=== PATIENT | male | born 1970 | race Two or more races ===

== ENCOUNTER 2016-07-15 16:51 | Emergency (ER) | payer MEDICAID ==
[~2016-07-15] VITALS: Ht 172.7 cm; Wt 68.0 kg
[~2016-07-15 16:51] MED LIST: BACL10TA PO; GABA300C8 PO; HYDR50CA2 PO; IBU800T PO; LITH300T11 PO; NOR5T PO; PANT40T PO; PHE100C PO; PRA1C PO; QUET200T30 PO; SERT-160 PO; TRAZ100T2 PO
[2016-07-16] MEDS ORDERED: SODIUM CHLORIDE 0.9% 1,000 ML IV ONE (06:55)
[2016-07-16] MEDS ORDERED: PROMETHAZINE HCL 25 MG/ML 1ML IV ONE (07:00)
[2016-07-16] MEDS ORDERED: KETOROLAC TROMETH 30 MG/ML 1ML VIAL IV ONE (07:00)
[2016-07-16 08:12] LABS: Basophils # (auto) 0 uL; Basophils % (auto) 0.9 % (0.0-2.0); Eosinophils # (auto) 0.1 uL; Eosinophils % (auto) 1.4 % (0.0-7.0); Hematocrit 38.2 % (41.0-53.0); Hemoglobin 12.3 g/dL (13.5-17.5); Lymphocytes # (auto) 1.8 uL; Lymphocytes % (auto) 39.8 % (10.0-50.0); Mean Corpuscular Hemoglobin 28.3 pg (28.0-32.0); Mean Corpuscular Hgb Conc. 32.1 g/dL (32.0-36.0); Mean Platelet Volume 7.5 fL (7.4-10.4); Monocytes # (auto) 0.5 uL; Monocytes % (auto) 11.5 % (0.0-12.0); Neutrophils # (auto) 2.2 uL; Neutrophils % (auto) 46.4 % (37.0-80.0); Platelet Count (auto) 234 10^3/uL (140-450); Red Cell Distribution Width 15.5 % (11.6-16.0); White Blood Cell 4.6 10^3/uL (4.4-10.8)
[2016-07-16 09:48] LABS: Anion Gap 7 (5-15); BUN/Creatinine Ratio 16.8; Blood Urea Nitrogen 18 mg/dL (7-18); Calcium 8.4 mg/dL (8.5-10.1); Carbon Dioxide 26 mmol/L (21-32); Chloride 103 mmol/L (98-107); GFR African American 95 mL/min; GFR Non-African American 79 mL/min; Glucose 88 mg/dL (74-106); Magnesium 2.2 mg/dL (1.6-2.6); Potassium 3.6 mmol/L (3.5-5.1); Sodium 136 mmol/L (136-145)
[2016-07-16 11:30] VITALS: BP 111/76
== END 2016-07-16 12:30 | disposition home or self-care (01) ==
LOC: EDBD 16:51 → ER 16:56
DX: M54.5 Low back pain (principal); G89.29 Other chronic pain; F10.129 Alcohol abuse with intoxication, unspecified; K21.9 Gastro-esophageal reflux disease without esophagitis; I10 Essential (primary) hypertension; B20 Human immunodeficiency virus [HIV] disease; Z86.19 Personal history of other infectious and parasitic diseases; Z87.898 Personal history of other specified conditions; F10.10 Alcohol abuse, uncomplicated
CPT/HCPCS: 36415; 80048; 80185; 80320; 83735; 84132; 85025; 96361; 96374; 96375; 99284; J1885; J2550; J7030

== ENCOUNTER 2017-06-18 13:21 | Emergency (ER) | payer MEDICAID ==
[~2017-06-18] VITALS: Ht 165.1 cm; Wt 74.8 kg
[~2017-06-18 13:21] MED LIST changes: +GABA300C10 PO; -GABA300C8 PO; +HYDR-4683 PO; -IBU800T PO; +IBUP800T24 PO; -LITH300T11 PO; +LITH300T3 PO; -NOR5T PO
[2017-06-19 08:45] VITALS: BP 117/78
[2017-06-19] MEDS ORDERED: HYDROcodone-ACET 10/325MG TAB PO ONE (08:45)
== END 2017-06-19 09:13 | disposition home or self-care (01) ==
LOC: ER 13:21
DX: B02.9 Zoster without complications (principal); F17.210 Nicotine dependence, cigarettes, uncomplicated; Z79.899 Other long term (current) drug therapy

== ENCOUNTER 2018-01-13 19:25 | Inpatient (IN) | payer MEDICAID ==
[~2018-01-13] VITALS: Ht 162.6 cm; Wt 78.4 kg
[2018-01-14] MEDS ORDERED: cloNIDine HCL 0.1 MG TAB PO ONE (04:15)
[2018-01-14] MEDS ORDERED: SULFAMETH-TRIMETH 80/16MG-ML 15 ML in D5W 5% 500 ML IV ONE (04:15)
[2018-01-14] MEDS ORDERED: PIPERACILLIN-TAZOB 3.375GM 100 ML IV ONE (04:15)
[2018-01-14 04:57] LABS: Basophils # (auto) 0 uL; Basophils % (auto) 0.4 % (0.0-2.0); Eosinophils # (auto) 0 uL; Eosinophils % (auto) 0.3 % (0.0-7.0); Hematocrit 43.7 % (41.0-53.0); Hemoglobin 14.5 g/dL (13.5-17.5); Lymphocytes # (auto) 1.9 uL; Lymphocytes % (auto) 21.5 % (10.0-50.0); Mean Corpuscular Hemoglobin 30.6 pg (28.0-32.0); Mean Corpuscular Hgb Conc. 33.2 g/dL (32.0-36.0); Mean Corpuscular Volume 92.1 fL (80.0-100.0); Monocytes # (auto) 0.9 uL; Monocytes % (auto) 9.9 % (0.0-12.0); Neutrophils # (auto) 6.2 uL; Neutrophils % (auto) 67.9 % (37.0-80.0); Platelet Count (auto) 261 10^3/uL (140-450); Red Blood Cells 4.75 10^6/uL (4.5-5.90); Red Cell Distribution Width 14.3 % (11.8-14.3); White Blood Cell 9.1 10^3/uL (4.4-10.8)
[2018-01-14 05:33] LABS: Albumin 3.2 g/dL (3.4-5.0); BUN/Creatinine Ratio 11.6; Bilirubin, Total 0.7 mg/dL (0.2-1.0); Calcium 8.3 mg/dL (8.5-10.1); Potassium 3.4 mmol/L (3.5-5.1); Total Protein 8.6 g/dL (6.4-8.2)
[2018-01-14] MEDS ORDERED: SODIUM CHLORIDE 0.9% 1,000 ML IV ONE (06:00)
[2018-01-14] MEDS ORDERED: ACETAMINOPHEN 500 MG TAB PO PRN (07:00)
[2018-01-14] MEDS ORDERED: MORPHINE SULF INJ 2 MG/ML SYRINGE 1ML IV PRN (07:00)
[2018-01-14 07:20] LABS: Urine Bacteria NONE SEEN /hpf (None Seen); Urine Blood Negative /uL (Negative); Urine Mucus FEW (None Seen); Urine Specific Gravity 1.011 (1.001-1.035); Urine WBC 2 /hpf (0 - 3)
[2018-01-14 07:28] LABS: Amphetamine Screen, Urine POSITIVE (NEGATIVE); Barbiturate Scree,Urine NEGATIVE (NEGATIVE); Benzodiazephine Screen, Urine NEGATIVE (NEGATIVE); Cannabinoid Screen, Urine NEGATIVE (NEGATIVE); Cocaine Screen, Urine NEGATIVE (NEGATIVE); Opiate Scree,Urine POSITIVE (NEGATIVE); Phencyclidine Screen, Urine NEGATIVE (NEGATIVE)
[2018-01-14] MEDS: CLINDAMYCIN 600MG IV 50 ML IV SCH ×3 (08:07→23:44)
[2018-01-14] MEDS: HYDROcodone-ACET 5/325MG TAB PO PRN ×2 (09:45→16:05)
[2018-01-14] MEDS: QUEtiapine FUMARATE 100 MG TAB PO SCH ×2 (09:45→22:09)
[2018-01-14] MEDS: PANTOPRAZOLE 40 MG TAB PO SCH (09:45)
[2018-01-14] MEDS ORDERED: cloNIDine HCL 0.1 MG TAB PO PRN (10:00)
[2018-01-14] MEDS ORDERED: POTASSIUM CHL 20 Meq TABLET PO ONE (11:45)
[2018-01-14] MEDS: PIPERACILLIN-TAZOB 3.375GM 100 ML IV SCH ×3 (12:17→23:44)
[2018-01-14] MEDS: MORPHINE SULFATE 4 MG/ML SYR/VIAL IV PRN ×2 (13:33→20:42)
[2018-01-14] MEDS: LORazepam 2MG/ML-1ML VIAL IV PRN (14:15)
[2018-01-14] MEDS: GABAPENTIN 300 MG CAP PO SCH ×2 (14:15→22:09)
[2018-01-14 20:52] VITALS: BP 124/69
[2018-01-14] MEDS: traZODone HCL 50 MG TAB PO SCH (22:08)
[2018-01-14 22:15] VITALS: BP 124/69
[2018-01-14] MEDS ORDERED: SULF400T11 PO (23:00)
[2018-01-14] MEDS ORDERED: RISP2TAB59 PO (23:00)
[2018-01-14] MEDS ORDERED: LORA2TAB89 PO (23:00)
[2018-01-15] VITALS (7 sets, daily range): BP systolic 108–126; BP diastolic 71–81
[2018-01-15] MEDS: MORPHINE SULFATE 4 MG/ML SYR/VIAL IV PRN ×5 (02:13→20:29)
[2018-01-15] MEDS: PIPERACILLIN-TAZOB 3.375GM 100 ML IV SCH ×3 (06:23→18:00)
[2018-01-15] MEDS: GABAPENTIN 300 MG CAP PO SCH ×3 (06:24→21:02)
[2018-01-15 06:27] LABS: Basophils # (auto) 0 uL; Basophils % (auto) 0.2 % (0.0-2.0); Eosinophils # (auto) 0 uL; Eosinophils % (auto) 0.4 % (0.0-7.0); Hematocrit 40.7 % (41.0-53.0); Hemoglobin 14.1 g/dL (13.5-17.5); Lymphocytes # (auto) 1.9 uL; Lymphocytes % (auto) 19.9 % (10.0-50.0); Mean Corpuscular Hemoglobin 31.8 pg (28.0-32.0); Mean Corpuscular Hgb Conc. 34.7 g/dL (32.0-36.0); Mean Corpuscular Volume 91.5 fL (80.0-100.0); Monocytes # (auto) 0.7 uL; Monocytes % (auto) 7.9 % (0.0-12.0); Neutrophils # (auto) 6.7 uL; Neutrophils % (auto) 71.6 % (37.0-80.0); Platelet Count (auto) 225 10^3/uL (140-450); Red Blood Cells 4.45 10^6/uL (4.5-5.90); Red Cell Distribution Width 13.9 % (11.8-14.3); White Blood Cell 9.3 10^3/uL (4.4-10.8)
[2018-01-15 06:47] LABS: BUN/Creatinine Ratio 9.5; Calcium 8.5 mg/dL (8.5-10.1); Potassium 3.8 mmol/L (3.5-5.1)
[2018-01-15] MEDS: QUEtiapine FUMARATE 100 MG TAB PO SCH ×2 (09:27→21:03)
[2018-01-15] MEDS: PANTOPRAZOLE 40 MG TAB PO SCH (09:27)
[2018-01-15] MEDS: CLINDAMYCIN 600MG IV 50 ML IV SCH ×3 (09:27→23:46)
[2018-01-15] MEDS: LORazepam 2MG/ML-1ML VIAL IV PRN (14:06)
[2018-01-15] MEDS: traZODone HCL 50 MG TAB PO SCH (21:03)
[2018-01-15] MEDS: HYDROcodone-ACET 5/325MG TAB PO PRN (23:46)
[2018-01-16] MEDS: PIPERACILLIN-TAZOB 3.375GM 100 ML IV SCH ×4 (00:54→17:53)
[2018-01-16] MEDS: MORPHINE SULFATE 4 MG/ML SYR/VIAL IV PRN ×5 (02:34→22:48)
[2018-01-16 04:45] VITALS: BP 132/79
[2018-01-16] MEDS: GABAPENTIN 300 MG CAP PO SCH ×3 (06:00→21:09)
[2018-01-16 07:34] LABS: Basophils # (auto) 0 uL; Basophils % (auto) 0.1 % (0.0-2.0); Eosinophils # (auto) 0 uL; Eosinophils % (auto) 0.4 % (0.0-7.0); Hematocrit 41.7 % (41.0-53.0); Hemoglobin 14.2 g/dL (13.5-17.5); Lymphocytes # (auto) 2.2 uL; Lymphocytes % (auto) 20.4 % (10.0-50.0); Mean Corpuscular Hemoglobin 31.1 pg (28.0-32.0); Mean Corpuscular Hgb Conc. 34.1 g/dL (32.0-36.0); Mean Corpuscular Volume 91.3 fL (80.0-100.0); Monocytes # (auto) 0.9 uL; Monocytes % (auto) 8.5 % (0.0-12.0); Neutrophils # (auto) 7.8 uL; Neutrophils % (auto) 70.6 % (37.0-80.0); Platelet Count (auto) 207 10^3/uL (140-450); Red Blood Cells 4.56 10^6/uL (4.5-5.90); Red Cell Distribution Width 13.9 % (11.8-14.3)
[2018-01-16 07:35] LABS: BUN/Creatinine Ratio 11.6; Calcium 8.4 mg/dL (8.5-10.1); Potassium 3.5 mmol/L (3.5-5.1)
[2018-01-16 08:00] VITALS: BP 112/57
[2018-01-16] MEDS: LORazepam 2MG/ML-1ML VIAL IV PRN (08:20)
[2018-01-16] MEDS: CLINDAMYCIN 600MG IV 50 ML IV SCH ×3 (08:25→23:32)
[2018-01-16 08:58] VITALS: BP 102/55
[2018-01-16] MEDS: PANTOPRAZOLE 40 MG TAB PO SCH (10:00)
[2018-01-16] MEDS: QUEtiapine FUMARATE 100 MG TAB PO SCH ×2 (10:00→21:09)
[2018-01-16] MEDS: HYDROcodone-ACET 5/325MG TAB PO PRN ×2 (11:56→19:54)
[2018-01-16 13:00] VITALS: BP 132/73
[2018-01-16 16:31] VITALS: BP 125/81
[2018-01-16 20:00] VITALS: BP 124/68
[2018-01-16] MEDS: traZODone HCL 50 MG TAB PO SCH (21:09)
[2018-01-17] MEDS: PIPERACILLIN-TAZOB 3.375GM 100 ML IV SCH ×5 (00:35→23:28)
[2018-01-17] MEDS: HYDROcodone-ACET 5/325MG TAB PO PRN ×2 (04:18→07:55)
[2018-01-17 04:27] VITALS: BP 117/76
[2018-01-17] MEDS: GABAPENTIN 300 MG CAP PO SCH ×3 (05:12→21:18)
[2018-01-17] MEDS: MORPHINE SULFATE 4 MG/ML SYR/VIAL IV PRN ×3 (05:24→21:45)
[2018-01-17 07:49] LABS: Basophils # (auto) 0 uL; Basophils % (auto) 0.3 % (0.0-2.0); Eosinophils # (auto) 0.1 uL; Hematocrit 38.9 % (41.0-53.0); Hemoglobin 13.6 g/dL (13.5-17.5); Lymphocytes # (auto) 1.7 uL; Mean Corpuscular Hemoglobin 31.7 pg (28.0-32.0); Mean Corpuscular Hgb Conc. 34.8 g/dL (32.0-36.0); Mean Corpuscular Volume 91.1 fL (80.0-100.0); Monocytes # (auto) 0.9 uL; Neutrophils # (auto) 4.1 uL; Neutrophils % (auto) 60.7 % (37.0-80.0); Nucleated Red Blood Cells % 0.1 %; Platelet Count (auto) 188 10^3/uL (140-450); Red Blood Cells 4.28 10^6/uL (4.5-5.90); White Blood Cell 6.7 10^3/uL (4.4-10.8)
[2018-01-17] MEDS: CLINDAMYCIN 600MG IV 50 ML IV SCH ×3 (07:55→23:12)
[2018-01-17 08:00] VITALS: BP 112/57
[2018-01-17 08:00] LABS: Calcium 8.5 mg/dL (8.5-10.1)
[2018-01-17 09:00] VITALS: BP 136/83
[2018-01-17] MEDS: QUEtiapine FUMARATE 100 MG TAB PO SCH ×2 (10:58→21:18)
[2018-01-17] MEDS: PANTOPRAZOLE 40 MG TAB PO SCH (10:59)
[2018-01-17 13:00] VITALS: BP 121/83
[2018-01-17] MEDS: LORazepam 2MG/ML-1ML VIAL IV PRN (13:30)
[2018-01-17 17:00] VITALS: BP 135/84
[2018-01-17] MEDS: traZODone HCL 50 MG TAB PO SCH (21:18)
[2018-01-17 22:27] VITALS: BP 116/86
[2018-01-18 05:51] VITALS: BP 138/96
[2018-01-18] MEDS: PIPERACILLIN-TAZOB 3.375GM 100 ML IV SCH ×3 (06:18→17:59)
[2018-01-18] MEDS: GABAPENTIN 300 MG CAP PO SCH ×3 (06:18→22:28)
[2018-01-18] MEDS: MORPHINE SULFATE 4 MG/ML SYR/VIAL IV PRN ×2 (06:18→18:50)
[2018-01-18] MEDS: CLINDAMYCIN 600MG IV 50 ML IV SCH (07:52)
[2018-01-18 07:54] LABS: Basophils # (auto) 0 uL; Basophils % (auto) 0.4 % (0.0-2.0); Eosinophils # (auto) 0.1 uL; Eosinophils % (auto) 0.9 % (0.0-7.0); Hematocrit 40.2 % (41.0-53.0); Hemoglobin 13.5 g/dL (13.5-17.5); Lymphocytes # (auto) 1.3 uL; Lymphocytes % (auto) 23.4 % (10.0-50.0); Mean Corpuscular Hemoglobin 30.4 pg (28.0-32.0); Mean Corpuscular Hgb Conc. 33.5 g/dL (32.0-36.0); Mean Corpuscular Volume 90.7 fL (80.0-100.0); Monocytes # (auto) 0.7 uL; Monocytes % (auto) 13.5 % (0.0-12.0); Neutrophils # (auto) 3.4 uL; Neutrophils % (auto) 61.8 % (37.0-80.0); Platelet Count (auto) 237 10^3/uL (140-450); Red Blood Cells 4.43 10^6/uL (4.5-5.90); Red Cell Distribution Width 14.7 % (11.8-14.3); White Blood Cell 5.5 10^3/uL (4.4-10.8)
[2018-01-18 08:00] VITALS: BP 140/101
[2018-01-18 08:14] LABS: BUN/Creatinine Ratio 9.6; Calcium 8.5 mg/dL (8.5-10.1); Potassium 3.7 mmol/L (3.5-5.1)
[2018-01-18] MEDS: QUEtiapine FUMARATE 100 MG TAB PO SCH ×2 (10:01→22:29)
[2018-01-18] MEDS: PANTOPRAZOLE 40 MG TAB PO SCH (10:01)
[2018-01-18] MEDS ORDERED: ONDANSETRON HCL 4 MG/2 ML VIAL IV PRN (11:45)
[2018-01-18] MEDS ORDERED: HYDROcodone-ACET 5/325MG TAB PO PRN (11:45)
[2018-01-18] MEDS ORDERED: VANCOMYCIN PER PHARMACY 0 MG IV SCH ×2 (11:45)
[2018-01-18 12:00] VITALS: BP 111/81
[2018-01-18] MEDS: VANCOMYCIN 1GM/250ML 250 ML IV SCH (14:00)
[2018-01-18 15:34] LABS: INR 0.92 (0.9-1.15); Partial Thromboplastin Time 27.2 sec (23.78-33.04); Prothrombin Time 9.9 sec (9.27-12.13)
[2018-01-18 17:00] VITALS: BP 129/85
[2018-01-18] MEDS: EMTRICITABINE PO SCH ×2 (17:59→18:37)
[2018-01-18] MEDS: EFAVIRENZ PO SCH ×2 (17:59→18:37)
[2018-01-18] MEDS: TENOFOVIR DISOPROXIL FUMARATE PO SCH ×2 (17:59→18:37)
[2018-01-18] MEDS ORDERED: DIVA250T51 PO (19:59)
[2018-01-18] MEDS ORDERED: QUET200T3 PO (20:02)
[2018-01-18 21:45] VITALS: BP 141/88
[2018-01-18] MEDS: traZODone HCL 50 MG TAB PO SCH (22:28)
[2018-01-19] MEDS: PIPERACILLIN-TAZOB 3.375GM 100 ML IV SCH ×4 (00:04→17:54)
[2018-01-19] MEDS: VANCOMYCIN 1GM/250ML 250 ML IV SCH ×2 (02:11→16:07)
[2018-01-19] MEDS: MORPHINE SULFATE 4 MG/ML SYR/VIAL IV PRN ×4 (02:12→22:29)
[2018-01-19 04:48] VITALS: BP 129/83
[2018-01-19 05:32] LABS: Basophils # (auto) 0 uL; Basophils % (auto) 0.2 % (0.0-2.0); Eosinophils # (auto) 0 uL; Eosinophils % (auto) 0.6 % (0.0-7.0); Hematocrit 38.8 % (41.0-53.0); Hemoglobin 13.4 g/dL (13.5-17.5); Lymphocytes # (auto) 1.5 uL; Lymphocytes % (auto) 24.5 % (10.0-50.0); Mean Corpuscular Hemoglobin 31.6 pg (28.0-32.0); Mean Corpuscular Hgb Conc. 34.5 g/dL (32.0-36.0); Mean Corpuscular Volume 91.6 fL (80.0-100.0); Monocytes # (auto) 0.7 uL; Monocytes % (auto) 11.6 % (0.0-12.0); Neutrophils # (auto) 3.9 uL; Neutrophils % (auto) 63.1 % (37.0-80.0); Nucleated Red Blood Cells % 0.1 %; Platelet Count (auto) 242 10^3/uL (140-450); Red Blood Cells 4.23 10^6/uL (4.5-5.90); Red Cell Distribution Width 14.1 % (11.8-14.3); White Blood Cell 6.1 10^3/uL (4.4-10.8)
[2018-01-19 05:45] LABS: INR 0.89 (0.9-1.15); Partial Thromboplastin Time 20.3 sec (23.78-33.04); Prothrombin Time 9.6 sec (9.27-12.13)
[2018-01-19 05:49] LABS: BUN/Creatinine Ratio 11.4; Calcium 8.4 mg/dL (8.5-10.1); Potassium 3.7 mmol/L (3.5-5.1)
[2018-01-19 05:52] LABS: Bilirubin, Total 0.3 mg/dL (0.2-1.0); Total Protein 8.5 g/dL (6.4-8.2)
[2018-01-19] MEDS: GABAPENTIN 300 MG CAP PO SCH ×3 (06:04→22:26)
[2018-01-19] MEDS ORDERED: POVIDONE IODINE 10 % TOPICAL OINT 30GM TOP ONE (07:08)
[2018-01-19] MEDS ORDERED: ceFAZolin 1GM VL ONE (07:08)
[2018-01-19] MEDS ORDERED: ceFAZolin 1GM/50ML 50 ML IV ONE (07:11)
[2018-01-19 07:20] VITALS: BP 138/99
[2018-01-19] MEDS ORDERED: LIDOCAINE 1% (LOCAL ANESTH.) PF 5ml SDV ONE (07:31)
[2018-01-19] MEDS ORDERED: fentaNYL CITRATE 100 MCG/2 ML VL ONE (07:32)
[2018-01-19] MEDS ORDERED: SUCCINYLCHOLINE CHLORIDE 20 MG/ML 10ML VIAL IV ONE (07:32)
[2018-01-19] MEDS ORDERED: MIDAZOLAM HCL 1MG/1ML-2 ML VIAL ONE (07:33)
[2018-01-19] MEDS ORDERED: PROPOFOL 10 MG/ML 20 ML IV ONE (07:36)
[2018-01-19] MEDS ORDERED: ONDANSETRON HCL 4 MG/2 ML VIAL IV ONE (08:30)
[2018-01-19] MEDS ORDERED: hydrALAZINE HCL 20 MG/ML VL IV PRN (08:30)
[2018-01-19] MEDS ORDERED: ePHEDrine SULFATE 50 MG/ML AMP IV PRN (08:30)
[2018-01-19] MEDS ORDERED: fentaNYL CITRATE 100 MCG/2 ML VL IV ONE (09:00)
[2018-01-19] MEDS: PANTOPRAZOLE 40 MG TAB PO SCH (09:51)
[2018-01-19] MEDS: QUEtiapine FUMARATE 100 MG TAB PO SCH ×2 (09:51→22:28)
[2018-01-19] MEDS: LORazepam 2MG/ML-1ML VIAL IV PRN (11:45)
[2018-01-19 13:15] VITALS: BP 144/93
[2018-01-19 16:41] VITALS: BP 124/95
[2018-01-19] MEDS: EFAVIRENZ PO SCH (17:54)
[2018-01-19] MEDS: TENOFOVIR DISOPROXIL FUMARATE PO SCH (17:54)
[2018-01-19] MEDS: EMTRICITABINE PO SCH (17:54)
[2018-01-19 22:00] VITALS: BP 141/101
[2018-01-19] MEDS: traZODone HCL 50 MG TAB PO SCH (22:27)
[2018-01-20] MEDS: PIPERACILLIN-TAZOB 3.375GM 100 ML IV SCH ×2 (00:02→05:39)
[2018-01-20] MEDS: LORazepam 2MG/ML-1ML VIAL IV PRN (00:02)
[2018-01-20] MEDS: VANCOMYCIN 1GM/250ML 250 ML IV SCH (02:26)
[2018-01-20] MEDS: GABAPENTIN 300 MG CAP PO SCH ×3 (06:22→22:20)
[2018-01-20 07:48] LABS: Basophils # (auto) 0 uL; Basophils % (auto) 0.4 % (0.0-2.0); Eosinophils # (auto) 0.1 uL; Eosinophils % (auto) 1.7 % (0.0-7.0); Hematocrit 38.3 % (41.0-53.0); Hemoglobin 12.8 g/dL (13.5-17.5); Lymphocytes # (auto) 1.6 uL; Lymphocytes % (auto) 33.2 % (10.0-50.0); Mean Corpuscular Hgb Conc. 33.4 g/dL (32.0-36.0); Mean Corpuscular Volume 92.8 fL (80.0-100.0); Monocytes # (auto) 0.7 uL; Monocytes % (auto) 15.3 % (0.0-12.0); Neutrophils # (auto) 2.4 uL; Neutrophils % (auto) 49.4 % (37.0-80.0); Platelet Count (auto) 209 10^3/uL (140-450); Red Blood Cells 4.13 10^6/uL (4.5-5.90); Red Cell Distribution Width 14.2 % (11.8-14.3); White Blood Cell 4.9 10^3/uL (4.4-10.8)
[2018-01-20 08:00] LABS: Albumin 2.8 g/dL (3.4-5.0); BUN/Creatinine Ratio 12.5; Bilirubin, Total 0.4 mg/dL (0.2-1.0); Calcium 7.9 mg/dL (8.5-10.1); Potassium 3.5 mmol/L (3.5-5.1); Total Protein 7.8 g/dL (6.4-8.2)
[2018-01-20 09:00] VITALS: BP 126/83
[2018-01-20] MEDS: QUEtiapine FUMARATE 100 MG TAB PO SCH ×2 (10:27→22:20)
[2018-01-20] MEDS: PANTOPRAZOLE 40 MG TAB PO SCH (10:27)
[2018-01-20] MEDS: LEVOFLOXACIN 500 MG TAB PO SCH (10:27)
[2018-01-20] MEDS: MORPHINE SULFATE 4 MG/ML SYR/VIAL IV PRN ×2 (10:50→23:00)
[2018-01-20 13:00] VITALS: BP 144/78
[2018-01-20] MEDS: VANCOMYCIN 1,250 MG in D5W 5% 250 ML IV SCH (14:02)
[2018-01-20 17:14] VITALS: BP 145/84
[2018-01-20] MEDS: EFAVIRENZ PO SCH (18:25)
[2018-01-20] MEDS: EMTRICITABINE PO SCH (18:25)
[2018-01-20] MEDS: TENOFOVIR DISOPROXIL FUMARATE PO SCH (18:25)
[2018-01-20 20:00] VITALS: BP 127/71
[2018-01-20 22:00] VITALS: BP 127/76
[2018-01-20] MEDS: traZODone HCL 50 MG TAB PO SCH (22:19)
[2018-01-21] MEDS: VANCOMYCIN 1,250 MG in D5W 5% 250 ML IV SCH ×2 (02:00→13:50)
[2018-01-21 05:00] VITALS: BP 159/96
[2018-01-21] MEDS: GABAPENTIN 300 MG CAP PO SCH ×3 (05:45→22:10)
[2018-01-21 06:54] LABS: Basophils # (auto) 0 uL; Basophils % (auto) 0.3 % (0.0-2.0); Eosinophils # (auto) 0 uL; Eosinophils % (auto) 0.3 % (0.0-7.0); Hematocrit 42.9 % (41.0-53.0); Hemoglobin 14.7 g/dL (13.5-17.5); Lymphocytes # (auto) 1.7 uL; Lymphocytes % (auto) 26.2 % (10.0-50.0); Mean Corpuscular Hgb Conc. 34.2 g/dL (32.0-36.0); Mean Corpuscular Volume 90.6 fL (80.0-100.0); Monocytes # (auto) 0.6 uL; Monocytes % (auto) 9.9 % (0.0-12.0); Neutrophils # (auto) 4.2 uL; Neutrophils % (auto) 63.3 % (37.0-80.0); Nucleated Red Blood Cells % 0.1 %; Platelet Count (auto) 283 10^3/uL (140-450); Red Blood Cells 4.73 10^6/uL (4.5-5.90); Red Cell Distribution Width 14.2 % (11.8-14.3); White Blood Cell 6.6 10^3/uL (4.4-10.8)
[2018-01-21 09:00] VITALS: BP 160/92
[2018-01-21] MEDS: MORPHINE SULFATE 4 MG/ML SYR/VIAL IV PRN ×3 (09:20→22:10)
[2018-01-21] MEDS: QUEtiapine FUMARATE 100 MG TAB PO SCH ×2 (09:20→22:10)
[2018-01-21] MEDS: PANTOPRAZOLE 40 MG TAB PO SCH (09:20)
[2018-01-21] MEDS: LEVOFLOXACIN 500 MG TAB PO SCH (09:21)
[2018-01-21 13:23] VITALS: BP 127/85
[2018-01-21 17:27] VITALS: BP 117/96
[2018-01-21] MEDS: EMTRICITABINE PO SCH (18:09)
[2018-01-21] MEDS: TENOFOVIR DISOPROXIL FUMARATE PO SCH (18:09)
[2018-01-21] MEDS: EFAVIRENZ PO SCH (18:09)
[2018-01-21 20:00] VITALS: BP 147/95
[2018-01-21 22:00] VITALS: BP 147/95
[2018-01-21] MEDS: traZODone HCL 50 MG TAB PO SCH (22:10)
[2018-01-22] MEDS: VANCOMYCIN 1,250 MG in D5W 5% 250 ML IV SCH (02:01)
[2018-01-22 05:00] VITALS: BP 122/76
[2018-01-22] MEDS: GABAPENTIN 300 MG CAP PO SCH (05:44)
[2018-01-22 05:58] LABS: Basophils # (auto) 0 uL; Basophils % (auto) 0.4 % (0.0-2.0); Eosinophils # (auto) 0.1 uL; Hemoglobin 13.4 g/dL (13.5-17.5); Lymphocytes # (auto) 1.9 uL; Lymphocytes % (auto) 33.2 % (10.0-50.0); Mean Corpuscular Hemoglobin 31.6 pg (28.0-32.0); Mean Corpuscular Hgb Conc. 34.4 g/dL (32.0-36.0); Mean Corpuscular Volume 91.8 fL (80.0-100.0); Monocytes # (auto) 0.8 uL; Monocytes % (auto) 14.4 % (0.0-12.0); Neutrophils # (auto) 2.9 uL; Nucleated Red Blood Cells % 0.1 %; Platelet Count (auto) 265 10^3/uL (140-450); Red Blood Cells 4.24 10^6/uL (4.5-5.90); Red Cell Distribution Width 14.2 % (11.8-14.3); White Blood Cell 5.8 10^3/uL (4.4-10.8)
[2018-01-22 07:49] LABS: BUN/Creatinine Ratio 14.1; Calcium 8.1 mg/dL (8.5-10.1); Potassium 3.6 mmol/L (3.5-5.1)
[2018-01-22 09:00] VITALS: BP 109/71
[2018-01-22] MEDS: LEVOFLOXACIN 500 MG TAB PO SCH (10:47)
[2018-01-22] MEDS: QUEtiapine FUMARATE 100 MG TAB PO SCH (10:48)
[2018-01-22] MEDS: PANTOPRAZOLE 40 MG TAB PO SCH (10:48)
[2018-01-22] MEDS: MORPHINE SULFATE 4 MG/ML SYR/VIAL IV PRN (10:49)
== END 2018-01-22 12:02 | disposition home or self-care (01) | DRG 892 ==
LOC: ER 19:25 → OVERFLOW 19:26 → CENTRAL 01-14 20:17
PROVIDERS: ADMIT Nurse Practitioner Family; ATTEND Internal Medicine
PROC: 0X9 Anatomical Regions, Upper Extremities, Drainage (ICD-10-PCS; 2018-01-16)
PROC: 0X970ZZ Drainage of Left Upper Extremity, Open Approach (ICD-10-PCS; 2018-01-19)
PROC: 0X960ZZ Drainage of Right Upper Extremity, Open Approach (ICD-10-PCS; principal; 2018-01-19 07:23)
DX: B20 Human immunodeficiency virus [HIV] disease (principal); A41.9 Sepsis, unspecified organism; K86.1 Other chronic pancreatitis; E88.09 Other disorders of plasma-protein metabolism, not elsewhere classified; B19.20 Unspecified viral hepatitis C without hepatic coma; E44.1 Mild protein-calorie malnutrition; L02.413 Cutaneous abscess of right upper limb; F19.90 Other psychoactive substance use, unspecified, uncomplicated; F17.210 Nicotine dependence, cigarettes, uncomplicated; F31.9 Bipolar disorder, unspecified; I10 Essential (primary) hypertension; K21.9 Gastro-esophageal reflux disease without esophagitis; L02.414 Cutaneous abscess of left upper limb; F15.10 Other stimulant abuse, uncomplicated; B95.62 Methicillin resistant Staphylococcus aureus infection as the cause of diseases classified elsewhere; Z79.899 Other long term (current) drug therapy; Z68.29 Body mass index [BMI] 29.0-29.9, adult
CPT/HCPCS: 10022; 36415; 76881; 76942; 80048; 80053; 80202; 80307; 81001; 85025; 85610; 85730; 86360; 87040; 87070; 87075; 87077; 87186; 87205; 93306; 94761; 96361; 96365; 96375; A6257; J0330; J0690; J2250; J2405; J2543; J2704; J3490; J7060